=== PATIENT | male | born 1995 | race Hispanic/Latino ===

== ENCOUNTER 2022-06-17 11:41 | Emergency (ER) | payer OTHER ==
[~2022-06-17] VITALS: Ht 172.7 cm; Wt 103.4 kg
[2022-06-17 12:20] VITALS: BP 132/78
[2022-06-17] MEDS ORDERED: AMOX1TAB16 PO (13:12)
[2022-06-17] MEDS ORDERED: BACI30OI6 TP (13:12)
[2022-06-17] MEDS: TETANUS/DIPHTHERIA TOXOID [ADULT] 0.5 ML VIAL IM ONE (13:21)
[2022-06-17] MEDS: BACITRACIN 1 EACH PACKET TP ONE (13:22)
[2022-06-17] MEDS: LIDOCAINE HCL 1% 10 ML VIAL ONE (13:22)
== END 2022-06-17 13:27 | disposition home or self-care (01) ==
LOC: EDH 11:41
DX: S61.012A Laceration without foreign body of left thumb without damage to nail, initial encounter (principal); X58.XXXA Exposure to other specified factors, initial encounter; Y93.89 Activity, other specified; Y92.89 Other specified places as the place of occurrence of the external cause; Y99.8 Other external cause status
CPT/HCPCS: 99283; 90714; 90471; 12002; J3490